=== PATIENT | female | born 1985 | race Caucasian/White ===

== ENCOUNTER 2017-08-29 19:29 | Emergency (ER) | payer OTHER ==
[~2017-08-29] VITALS: Ht 167.6 cm; Wt 64.4 kg
[~2017-08-29 19:29] MED LIST: AMOX1TAB12 PO; INTESTINEX1 CAP PO; NEXIUM40 MG/PACK PO; PRENATAL1 TAB PO
== END 2017-08-29 23:46 | disposition home or self-care (01) ==
LOC: ER 19:29
DX: R68.83 Chills (without fever) (principal); R10.84 Generalized abdominal pain

== ENCOUNTER 2017-09-09 07:36 | Outpatient (CLI) | payer OTHER | END 2017-09-09 07:46 | disposition home or self-care (01) | LOC: TOM 07:36 | DX: R10.32 Left lower quadrant pain (principal) ==

== ENCOUNTER 2017-09-30 10:15 | Outpatient (CLI) | payer OTHER | END 2017-10-01 05:57 | disposition home or self-care (01) | LOC: RX STUDY 10:15 | DX: R10.2 Pelvic and perineal pain (principal); R19.00 Intra-abdominal and pelvic swelling, mass and lump, unspecified site; R32 Unspecified urinary incontinence; N91.2 Amenorrhea, unspecified; Q51.4 Unicornate uterus ==

== ENCOUNTER → 2017-11-30 | Emergency (ER) | payer OTHER ==
[~2017-11-30] VITALS: Ht 167.6 cm; Wt 70.8 kg
== END | disposition home or self-care (01) ==
LOC: ER 19:11
DX: J11.1 Influenza due to unidentified influenza virus with other respiratory manifestations (principal)

== ENCOUNTER 2018-01-22 16:03 | Emergency (ER) | payer OTHER ==
[~2018-01-22] VITALS: Ht 167.6 cm; Wt 68.9 kg
== END 2018-01-22 19:25 | disposition home or self-care (01) ==
LOC: ER 16:03
DX: S00.83XA Contusion of other part of head, initial encounter (principal); S13.4XXA Sprain of ligaments of cervical spine, initial encounter; V49.9XXA Car occupant (driver) (passenger) injured in unspecified traffic accident, initial encounter; Y93.89 Activity, other specified; Y92.488 Other paved roadways as the place of occurrence of the external cause; Y99.8 Other external cause status

== ENCOUNTER 2018-07-24 22:13 | Emergency (ER) | payer OTHER ==
[~2018-07-24] VITALS: Ht 167.6 cm; Wt 68.9 kg
[2018-07-24] MEDS ORDERED: GILTUSS TR TAB1 EACH (23:43)
[2018-07-25] MEDS ORDERED: KETO10TA2 PO (04:20)
[2018-07-25] MEDS ORDERED: PHENERGAN25 MG PO (04:20)
[2018-07-25] MEDS ORDERED: TESSALON PERLE100 MG PO (04:20)
[2018-07-25] MEDS ORDERED: PEPCID AC20 MG PO (04:20)
== END 2018-07-25 04:27 | disposition home or self-care (01) ==
LOC: ER 22:13
DX: B34.9 Viral infection, unspecified (principal)

== ENCOUNTER 2020-04-25 06:10 | Day surgery (SDC) | payer OTHER ==
[~2020-04-25 06:10] MED LIST changes: +GILTUSS TR TAB1 EACH; +KETO10TA2 PO; +PEPCID AC20 MG PO; +PHENERGAN25 MG PO; +TESSALON PERLE100 MG PO
[2020-04-25] MEDS ORDERED: PERCOCET 5-3251 EACH PO (08:35)
[2020-04-25] MEDS ORDERED: RECTICARE30 GM TOP (08:36)
== END 2020-04-25 17:30 | disposition home or self-care (01) ==
LOC: CIR.AMB 06:10
PROVIDERS: ATTEND Surgery
DX: K64.4 Residual hemorrhoidal skin tags (principal); K60.1 Chronic anal fissure; Z20.828 Contact with and (suspected) exposure to other viral communicable diseases

== ENCOUNTER 2025-05-04 09:02 | Emergency (ER) | payer OTHER ==
[~2025-05-04] VITALS: Ht 170.2 cm; Wt 77.1 kg
[~2025-05-04 09:02] MED LIST changes: +PERCOCET 5-3251 EACH PO; +RECTICARE30 GM TOP
[2025-05-04] MEDS ORDERED: ZYRTEC10 M3 PO (09:35)
[2025-05-04] MEDS ORDERED: DEXAMETHASONE SODIUM PHOSPHATE 4 MG/ML VIAL IM STA (11:44)
[2025-05-04] MEDS ORDERED: CEFTRIAXONE SODIUM 500 MG VIAL IM STA (11:44)
[2025-05-04] MEDS ORDERED: DEXAMETHASONE SODIUM PHOSPHATE 4 MG/ML VIAL ONE (11:50)
[2025-05-04] MEDS ORDERED: LIDOCAINE HCL/MPF 1% 5ML VIAL IJ ONE (11:50)
[2025-05-04] MEDS ORDERED: ACETAMINOPHEN 500 MG GEL..CAP PO STA (11:57)
[2025-05-04 12:19] LABS: BASO % 0.5 % (0.1-1.2); EOS # 0.08 (0.04-0.54); EOS % 0.9 % (0.7-7.0); LYMPH # 1.98 (1.18-3.74); LYMPH % 22.6 % (19.3-53.1); MEAN PLATELET VOLUME 11.60 fl (9.4-12.4); MONO # 0.68 (0.24-0.82); MONO % 7.7 % (4.7-12.5); NEUT # 5.97 (1.56-6.13); NEUT % 68.0 % (34.0-71.1); RED CELL DISTRIBUTION WIDTH 12.9 % (11.6-14.4)
[2025-05-04 12:42] LABS: COVID-19 AG NEGATIVE (NEGATIVE)
[2025-05-04] MEDS ORDERED: AMOX-CLAV 875-1 EAC1 PO (13:23)
[2025-05-04] MEDS ORDERED: ZYRTEC10 MG PO (13:29)
== END 2025-05-04 13:59 | disposition home or self-care (01) ==
LOC: ER 09:02
PROVIDERS: General Practice
DX: J03.80 Acute tonsillitis due to other specified organisms (principal); B34.9 Viral infection, unspecified; Z91.013 Allergy to seafood; Z20.822 Contact with and (suspected) exposure to COVID-19